=== PATIENT | female | born 1965 | race African-American/Black ===

== ENCOUNTER 2019-07-24 22:16 | Emergency (ER) | payer OTHER ==
[~2019-07-24] VITALS: Ht 180.3 cm; Wt 143.0 kg
[2019-07-25] MEDS ORDERED: SODIUM CHLORIDE 0.9% 1,000 ML IV ONE (00:07)
[2019-07-25] MEDS ORDERED: ONDANSETRON HCL 4MG/2ML INJ IV STA (00:07)
[2019-07-25] MEDS ORDERED: MORPHINE SULFATE 4 MG/ML CPJ (NOT FOR IM USE) IV STA (00:07)
[2019-07-25 00:56] LABS: BASOPHILS % 0.9 % (0.0-2.0); EOSINOPHILS % 0.3 % (0.0-5.0); HEMOGLOBIN. 11.6 g/dL (12.0-16.0); LYMPHOCYTES % 37.2 % (20.0-50.0); MEAN CORPUSCULAR HEMOGLOBIN 23.7 pg (28.0-32.0); MEAN CORPUSCULAR VOLUME 73.4 fL (81.0-99.0); MEAN PLATELET VOLUME 8.2 fl (7.4-10.4); MONOCYTES % 8.3 % (2.0-8.0); NEUTROPHILS % 53.3 % (40.0-76.0); PLATELET 292 x1000/uL (130-400); RED BLOOD CELL COUNT 4.91 mill/uL (4.2-5.4); RED CELL DISTRIBUTION WIDTH 20.2 % (11.6-14.6)
[2019-07-25 01:01] LABS: CHLORIDE 107 mEq/L (98-107)
[2019-07-25 02:05] LABS: CLARITY URINE CLEAR (CLEAR); COLOR URINE YELLOW (YELLOW); KETONES URINE TRACE (NEGATIVE); LEUKOCYTE ESTERASE URINE TRACE (NEGATIVE); NITRITE URINE NEGATIVE (NEGATIVE); OCCULT BLOOD URINE NEGATIVE (NEGATIVE); PROTEIN URINE NEGATIVE (NEGATIVE); SPECIFIC GRAVITY URINE 1.019 (1.005-1.030); UROBILINOGEN URINE 0.2 E.U./dL (0.2-1.0)
[2019-07-25] MEDS ORDERED: IOHEXOL-300 100 ML BOTTLE ONE (02:07)
[2019-07-25 02:41] VITALS: BP 134/82
== END 2019-07-25 04:19 | disposition home or self-care (01) ==
LOC: ER 22:16
DX: R10.31 Right lower quadrant pain (principal); R03.0 Elevated blood-pressure reading, without diagnosis of hypertension; D25.9 Leiomyoma of uterus, unspecified
CPT/HCPCS: 36415; 74177; 80053; 81003; 83690; 85025; 96374; 96375; 99285; J2270; J2405; J7030; Q9967

== ENCOUNTER 2019-11-08 16:22 | Emergency (ER) | payer OTHER ==
[~2019-11-08] VITALS: Ht 180.3 cm; Wt 136.5 kg
[2019-11-08] MEDS ORDERED: KETOROLAC 30MG/ML VIAL IV STA (17:37)
[2019-11-08] MEDS ORDERED: FAMOTIDINE 20MG/2ML VIAL IV STA (17:37)
[2019-11-08 17:58] LABS: BASOPHILS % 1.3 % (0.0-2.0); EOSINOPHILS % 0.3 % (0.0-5.0); LYMPHOCYTES % 42.4 % (20.0-50.0); MEAN CORPUSCULAR HEMOGLOBIN 23.7 pg (28.0-32.0); MEAN CORPUSCULAR VOLUME 74.6 fL (81.0-99.0); MEAN PLATELET VOLUME 8.8 fl (7.4-10.4); MONOCYTES % 9.1 % (2.0-8.0); NEUTROPHILS % 46.9 % (40.0-76.0); PLATELET 233 x1000/uL (130-400); RED CELL DISTRIBUTION WIDTH 22.8 % (11.6-14.6)
[2019-11-08 18:04] LABS: CHLORIDE 105 mEq/L (98-107)
[2019-11-08 18:50] LABS: PLATELET ESTIMATE NORMAL
[2019-11-08 22:45] VITALS: BP 110/73
== END 2019-11-08 22:46 | disposition home or self-care (01) ==
LOC: ER 16:22
DX: R10.10 Upper abdominal pain, unspecified (principal); R16.0 Hepatomegaly, not elsewhere classified; I10 Essential (primary) hypertension; K21.9 Gastro-esophageal reflux disease without esophagitis; Z98.51 Tubal ligation status; Z98.890 Other specified postprocedural states
CPT/HCPCS: 36415; 71045; 76705; 80053; 83690; 84484; 85025; 93005; 96374; 96375; 99285; J1885; J3490

== ENCOUNTER 2019-12-07 14:38 | Emergency (ER) | payer OTHER ==
[~2019-12-07] VITALS: Ht 180.3 cm; Wt 130.0 kg
[2019-12-07] MEDS ORDERED: LIDOCAINE HCL 1% 20ML VIAL (Pyxis) INJ INFIL ONE (16:00)
[2019-12-07 17:22] VITALS: BP 147/73
== END 2019-12-07 17:24 | disposition home or self-care (01) ==
LOC: ER 14:38
DX: T81.30XA Disruption of wound, unspecified, initial encounter (principal); X58.XXXA Exposure to other specified factors, initial encounter; K21.9 Gastro-esophageal reflux disease without esophagitis; E78.00 Pure hypercholesterolemia, unspecified; Z98.51 Tubal ligation status
CPT/HCPCS: 12002; 93005; 99283; J3490; 12013; 99282

== ENCOUNTER 2021-06-07 15:40 | Emergency (ER) | payer OTHER ==
[~2021-06-07] VITALS: Ht 180.3 cm; Wt 150.0 kg
[2021-06-07 16:07] VITALS: BP 153/86
[2021-06-07] MEDS ORDERED: KETOROLAC 60MG/2ML VIAL IM ONE (16:15)
[2021-06-07] MEDS ORDERED: METHOCARBAMOL 500MG TABLET PO ONE (16:15)
[2021-06-07] MEDS ORDERED: METHOCARBAMOL 500MG TABLET PO NR (17:30)
[2021-06-07] MEDS ORDERED: KETOROLAC 60MG/2ML VIAL IM NR (17:30)
[2021-06-07] MEDS ORDERED: NAPR-681 MT (18:16)
[2021-06-07] MEDS ORDERED: METH-773 MT (18:16)
[2021-06-07] MEDS ORDERED: LIDO1ADH5 TP (18:16)
== END 2021-06-07 18:42 | disposition home or self-care (01) ==
LOC: ER 16:00
DX: S39.012A Strain of muscle, fascia and tendon of lower back, initial encounter (principal); X50.1XXA Overexertion from prolonged static or awkward postures, initial encounter; E11.9 Type 2 diabetes mellitus without complications; Y93.89 Activity, other specified; Y92.89 Other specified places as the place of occurrence of the external cause
CPT/HCPCS: 96372; 99283; J1885

== ENCOUNTER 2023-02-28 10:49 | Emergency (ER) | payer MEDICAID, OTHER ==
[~2023-02-28] VITALS: Ht 172.7 cm; Wt 120.0 kg
[~2023-02-28 10:49] MED LIST: LIDO1ADH5 TP; METH-773 MT; NAPR-681 MT
[2023-02-28 10:57] VITALS: BP 138/86; PULSE 91; RESP 16; TEMP 98.7; O2SAT 97
[2023-02-28 11:25] LABS: BASOPHILS % 0.1 % (0.0-2.0); HEMATOCRIT. 45.1 % (36.0-48.0); HEMOGLOBIN. 14.5 g/dL (12.0-16.0); LYMPHOCYTES % 20.5 % (20.0-50.0); MEAN CORPUSCULAR HEMOGLOBIN 27.6 pg (28.0-32.0); MEAN CORPUSCULAR HGB CONC 32.2 g/dL (31.0-37.0); MEAN CORPUSCULAR VOLUME 85.7 fL (81.0-99.0); MEAN PLATELET VOLUME 8.3 fl (7.4-10.4); MONOCYTES % 12.3 % (2.0-8.0); NEUTROPHILS % 67.1 % (40.0-76.0); PLATELET 207 x1000/uL (130-400); RED BLOOD CELL COUNT 5.26 mill/uL (4.2-5.4); RED CELL DISTRIBUTION WIDTH 15.5 % (11.6-14.6); WHITE BLOOD COUNT 6.8 x1000/uL (4.5-11.0)
[2023-02-28 11:51] LABS: ALANINE AMINOTRANSFERASE 35 IU/L (10-49); ALBUMIN 4.2 g/dL (3.2-4.8); ASPARTATE AMINOTRANSFERASE 37 IU/L (<34); BILIRUBIN TOTAL 0.6 mg/dL (0.1-1.0); CARBON DIOXIDE 23 mEq/L (21-32); CHLORIDE 106 mEq/L (98-107); CREATININE 0.7 mg/dL (0.6-1.0); GLUCOSE 102 mg/dL (70-105); POTASSIUM 3.5 mEq/L (3.5-5.1); PROTEIN TOTAL 7.9 g/dL (6.0-8.3); SODIUM 141 mEq/L (136-145); UREA NITROGEN BLOOD 9 mg/dL (9-23)
[2023-02-28 11:54] LABS: TROPONIN I HIGH SENSITIVITY < 4 ng/L (3.0-34)
[2023-02-28 11:56] LABS: INR 1.1; PROTHROMBIN TIME 11.3 sec (9.6-11.0)
[2023-02-28] MEDS ORDERED: DEXT30SU17 MT (13:42)
[2023-02-28] MEDS ORDERED: ACET-2708 MT (13:42)
[2023-02-28] MEDS ORDERED: AZIT250T12 MT (13:42)
== END 2023-02-28 14:43 | disposition home or self-care (01) ==
LOC: ER 11:54
DX: J20.9 Acute bronchitis, unspecified (principal); B34.9 Viral infection, unspecified; K21.9 Gastro-esophageal reflux disease without esophagitis; E78.00 Pure hypercholesterolemia, unspecified
CPT/HCPCS: 36415; 71045; 80053; 84484; 85025; 93005; 99285

== ENCOUNTER 2023-10-12 18:22 | Emergency (ER) | payer MEDICAID ==
[~2023-10-12] VITALS: Ht 175.3 cm; Wt 136.0 kg
[~2023-10-12 18:22] MED LIST changes: +ACET-2708 MT; +AZIT250T12 MT; +DEXT30SU17 MT
[2023-10-12 18:26] VITALS: O2SAT 99
[2023-10-12] MEDS: ACETAMINOPHEN 325MG TABLET PO ONE (19:35)
[2023-10-12] MEDS ORDERED: LIDO700A15 TP (20:17)
[2023-10-12 20:38] VITALS: BP 133/86; PULSE 58; RESP 14; TEMP 36.66960; O2SAT 99
== END 2023-10-12 20:40 | disposition home or self-care (01) ==
LOC: ER 18:22
DX: G57.11 Meralgia paresthetica, right lower limb (principal); E78.00 Pure hypercholesterolemia, unspecified; Z90.710 Acquired absence of both cervix and uterus; Z79.899 Other long term (current) drug therapy
CPT/HCPCS: 99283